=== PATIENT | male | born 1950 ===

== ENCOUNTER 2019-11-23 07:24 | Emergency (ER) | payer OTHER ==
[2019-11-24 14:44] LABS: SARS-CoV-2 MS2 Positive; SARS-CoV-2 N Gene Positive; SARS-CoV-2 S Gene Positive; SARS-CoV-2 orf1ab Positive
== END 2019-11-23 07:53 | disposition home or self-care (01) ==
LOC: ERS 07:24
DX: U07.1 COVID-19 (principal); I10 Essential (primary) hypertension
CPT/HCPCS: 87635; 99283; U0003